=== PATIENT | female | born 1990 | race Caucasian/White ===

== ENCOUNTER 2023-04-20 19:31 | Emergency (ER) | payer OTHER, SELFPAY ==
--- NOTE | ~2023-04-20 | CT_ITS ---
EXAMINATION: CT abdomen pelvis wo con DATE: 04/20/2023 22:45 INDICATION: Right flank pain TECHNIQUE: Computed tomography (CT) of the abdomen and pelvis was performed without intravenous contr ast. Automated exposure control and iterative reconstruction technique were employed. The dose-length product was 182.51 mGy-cm. COMPARISON: None FINDINGS: Lung bases are clear. Heart size is normal. No pericardial or pleural effusion. Liver, gallbladder, s pleen and a few adjacent small splenule is, pancreas, bilateral adrenal glands and kidneys are normal . No evident urolithiasis. Bowels including the appendix are normal. Bladder is normal. Normal retrov erted, retroflexed uterus. No free intraperitoneal gas or fluid. No pathologically enlarged abdominal or pelvic lymphadenopathy. Mild lumbar levocurvature with mild spondylosis. IMPRESSION: 1. No acute intra-abdominal/pelvic process. Reviewed, dictated and finalized at location A. [facility]
[2023-04-20 19:48] VITALS: BP 136/76; PULSE 112; RESP 15; TEMP 37.3; O2SAT 100
[2023-04-20 21:56] LABS: Basophils Percent Auto 0.3 % (0.2-1.2); Eosinophils Absolute Auto 0.1 K/mm3 (0-0.3); Eosinophils Percent Auto 0.5 % (0-4.4); Hemoglobin 12.4 g/dL (12.0-15.0); Immature Granulocyte Absolute 0.02 K/mm3 (0.00-0.031); Immature Granulocyte Percent A 0.2 % (0-0.5); Lymphocytes Absolute Auto 1.05 K/mm3 (0.9-3.2); Lymphocytes Percent Auto 9.4 % (18.3-44.2); Mean Corpuscular HGB Conc 31.8 g/dl (32-36); Mean Corpuscular Hemoglobin 30.1 pg (26-34); Mean Corpuscular Volume 94.7 fl (80-100); Mean Platelet Volume 11.6 fl (7.4-10.4); Monocytes Absolute Auto 0.7 K/mm3 (0.1-0.6); Monocytes Percent Auto 6.3 % (2.6-8.5); Neutrophils Absolute Auto 9.3 K/mm3 (1.3-6.7); Neutrophils Percent Auto 83.3 % (45.5-73.1); Platelet Count Result 227 k/mm3 (150-375); Red Blood Count 4.12 M/mm3 (4.2-5.4); Red Cell Distribution Width 13.2 % (11.5-14.5); White Blood Count 11.1 K/mm3 (4.5-10.0)
[2023-04-20 22:05] VITALS: BP 125/60; PULSE 66; RESP 18; O2SAT 99
[2023-04-20 22:08] LABS: Alanine Aminotransferase 11 U/L (6-35); Albumin Level 4.4 g/dL (3.5-5.1); Alkaline Phosphatase 81 U/L (38-126); Anion Gap 7 mmol/L (8-16); Aspartate Amino Transferase 23 U/L (14-36); Bilirubin,Total 0.4 mg/dL (0.2-1.3); Blood Urea Nitrogen 13 mg/dL (7-17); Calcium 9.2 mg/dL (8.4-10.2); Carbon Dioxide 27 mmol/L (22-30); Chloride 104 mmol/L (98-107); Estimated CRCL calculation 82 ml/min; Estimated Glomerular Filt Rate > 60; Glucose 100 mg/dL (65-110); Lipase 43 U/L (23-300); Potassium 3.9 mmol/L (3.4-5.0); Sodium 138 mmol/L (137-145)
[2023-04-20 22:27] LABS: Beta HCG Quantitative < 2.39 mIU/ML
--- NOTE | 2023-04-20 22:42 | ED.GENADULT ---
HPI - General Adult General Chief complaint: Abdominal Pain Stated complaint: right sided abd pain for a month Time Seen by Provider: 04/20/23 21:59 Source: patient Mode of arrival: ambulatory Limitations: no limitations History of Present Illness HPI narrative: This is a 33-year-old female who presents to the ED with chief complaint of right-sided abdominal pain intermittently for the past month. Patient reports the pain got worse today and is now radiating into the right flank area. Reports persistent pain in the right lower abdomen near the umbilicus. Reports some general constipation and only has a bowel movement for a few days. Denies nausea, vomiting, diarrhea, fevers, chills. Denies urinary symptoms or pelvic pain or vaginal symptoms. No abdominal surgical history Related Data Allergies Allergy/AdvReac Type Severity Reaction Status Date / Time No Known Allergies Allergy Verified 04/20/23 22:05 Review of Systems Review of Systems: All systems as dictated in HPI Exam Narrative: GENERAL: Well-appearing, well-nourished, and in no acute distress. HEAD: Normocephalic, atraumatic. EYES: PERRLA and EOMI. ENT: Nares clear, no rhinorrhea or epistaxis. Mucous membranes moist. Oropharynx without tonsillar hypertrophy exudate or other lesions. NECK: Supple. No adenopathy or masses. CHEST: No respiratory distress. Clear to auscultation. No wheezes rales or rhonchi HEART: Regular rate and rhythm. No murmur heard. Normal peripheral pulses. ABDOMEN: Soft, nontender, nondistended, normal active bowel sounds. MSK: Normal range of motion. No edema. SKIN: Warm, dry, no rash. NEURO: Alert and oriented x3. No focal deficits. PSYCH: Normal mood and affect. Course Vital Signs Vital signs: Vital Signs Temperature 99.1 F 04/20/23 19:48 Pulse Rate 112 H 04/20/23 19:48 Respiratory Rate 15 04/20/23 19:48 Blood Pressure 136/76 04/20/23 19:48 Pulse Oximetry 100 04/20/23 19:48 Oxygen Delivery Room Air 04/20/23 19:48 Temperature 99.1 F 04/20/23 19:48 Pulse Rate 71 04/20/23 23:50 Respiratory Rate 17 04/20/23 23:50 Blood Pressure 117/71 04/20/23 23:50 Pulse Oximetry 100 04/20/23 23:50 Oxygen Delivery Room Air 04/20/23 19:48 Medical Decision Making MDM Narrative Medical decision making narrative: This is a 33-year-old female who presents to the ED with chief complaint of a month of intermittent abdominal pain. Vitals are normal. Exam is overall benign. No evidence of acute abdomen. She is complaining of some flank pain so CT scan was ordered. CT abdomen pelvis without contrast is negative for any acute findings. Lab work is grossly unremarkable. Urinalysis is negative. Patient was describing some issues with constipation and I feel that this is the most likely cause of her symptoms at this point. Pt will be discharged in stable condition. Return precautions given and supportive measures discussed. Pt is understanding and agreeable with plan for discharge and follow-up with PCP. Vital Signs Vital Signs: Vital Signs Temperature 99.1 F 04/20/23 19:48 Pulse Rate 112 H 04/20/23 19:48 Respiratory Rate 15 04/20/23 19:48 Blood Pressure 136/76 04/20/23 19:48 Pulse Oximetry 100 04/20/23 19:48 Oxygen Delivery Room Air 04/20/23 19:48 Temperature 99.1 F 04/20/23 19:48 Pulse Rate 71 04/20/23 23:50 Respiratory Rate 17 04/20/23 23:50 Blood Pressure 117/71 04/20/23 23:50 Pulse Oximetry 100 04/20/23 23:50 Oxygen Delivery Room Air 04/20/23 19:48 Lab Data 04/20/23 21:48 04/20/23 21:48 Labs: Lab Results 04/20/23 Range/Units 21:48 WBC 11.1 H (4.5-10.0) K/mm3 RBC 4.12 L (4.2-5.4) M/mm3 Hgb 12.4 (12.0-15.0) g/dL Hct 39.0 (37.0-47.0) % MCV 94.7 (80-100) fl MCH 30.1 (26-34) pg MCHC 31.8 L (32-36) g/dl RDW 13.2 (11.5-14.5) % Plt Count 227 (150-375) k/mm3 MPV 11.6 H (7.4-10
[2023-04-20 22:56] LABS: Appearance Urine Clear (Clear); Bilirubin Urine Negative (Negative); Blood Urine Negative (Negative); Color Urine Yellow (Yellow); Glucose Urine UA Negative (Negative); Ketones Urine Negative (Negative); Leukocyte Esterase Ur Negative LEU/UL (Negative); Nitrate Urine Negative (Negative); Protein Urine Negative (Negative); Specific Grav Ur 1.023 (1.001-1.035)
[2023-04-20 23:00] LABS: Add Urine Microscopic? NO
[2023-04-20 23:50] VITALS: BP 117/71; PULSE 71; RESP 17; O2SAT 100
== END 2023-04-20 23:50 | disposition home or self-care (01) ==
PROVIDERS: Emergency Medicine; Emergency Provider Physician Assistant; PCP Physician Assistant
DX: R10.31 Right lower quadrant pain (principal)
CPT/HCPCS: 36415; 74176; 80053; 81003; 82248; 83690; 84702; 85025; 99284